=== PATIENT | male | born 1930 | race Caucasian/White ===

== ENCOUNTER 2018-06-26 10:04 | Day surgery (SDC) | payer MEDICARE ==
[~2018-06-26 10:04] MED LIST: BSS with VANC/TOB/EPI for EYE CASES IR; CYCLOPENTOLATE 2% OPHTH SOLN 2ML BTL OD; CYCLOPENTOLATE 2% OPHTH SOLN 2ML BTL OS; LIDOCAINE 3.5 % 1ML OPHTH TOPICAL GEL OU; OFLOXACIN 0.3 % (OCUFLOX) OPTH SOL 5ML OD; OFLOXACIN 0.3 % (OCUFLOX) OPTH SOL 5ML OS; PHENYLEPHRINE 2.5% OPHTH SOL 2ML OD; PHENYLEPHRINE 2.5% OPHTH SOL 2ML OS; PHENYLEPHRINE HCL 10 % OPHTH. SOL 5ML OD; PHENYLEPHRINE HCL 10 % OPHTH. SOL 5ML OS; TROPICAMIDE 1% OPHTH SOLN 2ML OD; TROPICAMIDE 1% OPHTH SOLN 2ML OS
[2018-06-26] MEDS ORDERED: MIDAZOLAM INJ 2 MG/2 ML VIAL (J2250) As Ordered (14:07)
[2018-06-26] MEDS ORDERED: fentaNYL 100 MCG/2 ML INJECTION (J3010) As Ordered (14:07)
[2018-06-26] MEDS: POVIDONE-IODINE 5% OPHTH PREP SOL 30ML As Ordered (14:50)
[2018-06-26] MEDS: HEALON DUET PRO(HEALON 10MG/ML 0.55ML & HEALON ENDOCOAT 30MG/ML 0.85ML) As Ordered (14:50)
[2018-06-26] MEDS: BSS with VANC/TOB/EPI for EYE CASES IR (14:50)
[2018-06-26] MEDS: TRIAMCINOLONE PRES FR 40 MG/ML 1ML(TRIESENCE)(OR EYE ONLY)(J3300 PER 1MG) As Ordered (14:50)
[2018-06-26] MEDS: MOXIFLOXACIN IN BSS 0.25MG/0.25ML INTRACAMERAL INJ (OR EYE ONLY)(J2280) As Ordered (14:50)
[2018-06-26] MEDS: LIDOCAINE 1% SDV 5 ML VIAL As Ordered (14:50)
== END 2018-06-26 16:00 | disposition home or self-care (01) ==
LOC: M SDC 10:04
DX: H25.9 Unspecified age-related cataract (principal); I10 Essential (primary) hypertension; I48.91 Unspecified atrial fibrillation; E78.5 Hyperlipidemia, unspecified; Z79.01 Long term (current) use of anticoagulants; Z79.899 Other long term (current) drug therapy
CPT/HCPCS: 66984

== ENCOUNTER 2018-07-02 08:27 | Day surgery (SDC) | payer MEDICARE ==
[2018-07-02] MEDS: CYCLOPENTOLATE 2% OPHTH SOLN 2ML BTL OS (07:00)
[2018-07-02] MEDS: TROPICAMIDE 1% OPHTH SOLN 2ML OS (07:00)
[2018-07-02] MEDS: PHENYLEPHRINE 2.5% OPHTH SOL 2ML OS (07:00)
[2018-07-02] MEDS: OFLOXACIN 0.3 % (OCUFLOX) OPTH SOL 5ML OS (07:00)
[2018-07-02] MEDS: LIDOCAINE 3.5 % 1ML OPHTH TOPICAL GEL OU (07:00)
[~2018-07-02 08:27] MED LIST changes: -CYCLOPENTOLATE 2% OPHTH SOLN 2ML BTL OD; -CYCLOPENTOLATE 2% OPHTH SOLN 2ML BTL OS; +HEALON DUET PRO(HEALON 10MG/ML 0.55ML & HEALON ENDOCOAT 30MG/ML 0.85ML) As Ordered; +LIDOCAINE 1% SDV 5 ML VIAL As Ordered; -LIDOCAINE 3.5 % 1ML OPHTH TOPICAL GEL OU; +MIDAZOLAM INJ 2 MG/2 ML VIAL (J2250) As Ordered; +MOXIFLOXACIN IN BSS 0.25MG/0.25ML INTRACAMERAL INJ (OR EYE ONLY)(J2280) As Ordered; -OFLOXACIN 0.3 % (OCUFLOX) OPTH SOL 5ML OD; -OFLOXACIN 0.3 % (OCUFLOX) OPTH SOL 5ML OS; -PHENYLEPHRINE 2.5% OPHTH SOL 2ML OD; -PHENYLEPHRINE 2.5% OPHTH SOL 2ML OS; -PHENYLEPHRINE HCL 10 % OPHTH. SOL 5ML OD; +POVIDONE-IODINE 5% OPHTH PREP SOL 30ML As Ordered; +TRIAMCINOLONE PRES FR 40 MG/ML 1ML(TRIESENCE)(OR EYE ONLY)(J3300 PER 1MG) As Ordered; -TROPICAMIDE 1% OPHTH SOLN 2ML OD; -TROPICAMIDE 1% OPHTH SOLN 2ML OS; +fentaNYL 100 MCG/2 ML INJECTION (J3010) As Ordered
[2018-07-02] MEDS ORDERED: PROPOFOL 200 MG/20 ML VIAL As Ordered (10:49)
[2018-07-02] MEDS ORDERED: HEALON DUET PRO(HEALON 10MG/ML 0.55ML & HEALON ENDOCOAT 30MG/ML 0.85ML) As Ordered (10:53)
== END 2018-07-02 11:40 | disposition home or self-care (01) ==
LOC: M SDC 08:27
DX: H25.9 Unspecified age-related cataract (principal); I48.91 Unspecified atrial fibrillation; I10 Essential (primary) hypertension; E78.5 Hyperlipidemia, unspecified; Z79.01 Long term (current) use of anticoagulants; Z79.899 Other long term (current) drug therapy
CPT/HCPCS: 66984

== ENCOUNTER → 2019-01-14 | Outpatient (REF) | payer MEDICARE ==
[~2019-01-14] MED LIST changes: +ATOR1TAB21 PO; +BENA20TA8 PO; -BSS with VANC/TOB/EPI for EYE CASES IR; -HEALON DUET PRO(HEALON 10MG/ML 0.55ML & HEALON ENDOCOAT 30MG/ML 0.85ML) As Ordered; -LIDOCAINE 1% SDV 5 ML VIAL As Ordered; -MIDAZOLAM INJ 2 MG/2 ML VIAL (J2250) As Ordered; -MOXIFLOXACIN IN BSS 0.25MG/0.25ML INTRACAMERAL INJ (OR EYE ONLY)(J2280) As Ordered; -PHENYLEPHRINE HCL 10 % OPHTH. SOL 5ML OS; -POVIDONE-IODINE 5% OPHTH PREP SOL 30ML As Ordered; -TRIAMCINOLONE PRES FR 40 MG/ML 1ML(TRIESENCE)(OR EYE ONLY)(J3300 PER 1MG) As Ordered; +XARE20TA PO; -fentaNYL 100 MCG/2 ML INJECTION (J3010) As Ordered
== END ==
LOC: M LAB REF 16:27
PROVIDERS: ATTEND Ophthalmology
DX: H02.834 Dermatochalasis of left upper eyelid (principal); H02.412 Mechanical ptosis of left eyelid